=== PATIENT | male | born 1965 | race Caucasian/White ===

== ENCOUNTER → 2020-12-10 | Outpatient (CLI) | payer BC, OTHER ==
[~2020-12-10] MED LIST: PERCOCET 5/325 T1 EA PO
== END ==
LOC: HEART 5 07:48
DX: R07.9 Chest pain, unspecified (principal)
CPT/HCPCS: 78452; 93306; A9502; J2785

== ENCOUNTER 2021-07-23 06:34 | Emergency (ER) | payer BC ==
[2021-07-23 07:13] LABS: HEMOGLOBIN 14.3 gm/dl (14.0-17.5); RED BLOOD COUNT 5.63 M/UL (4.20-5.50); WHITE BLOOD COUNT 12.2 K/UL (4.5-11.0)
[2021-07-23 07:31] LABS: BUN/CREATININE RATIO 21 (0-10)
[2021-07-23] MEDS ORDERED: IBUPROFEN600 MG PO (12:01)
[2021-07-23] MEDS ORDERED: PROVENTIL HFA6.7 GM INH (12:01)
[2021-07-23] MEDS ORDERED: ZOFRAN 4 MG TAB4 MG PO (12:01)
== END 2021-07-23 12:18 | disposition home or self-care (01) ==
LOC: ER1 06:34
PROVIDERS: Physician Assistant Medical
DX: R51.9 Headache, unspecified (principal); R91.1 Solitary pulmonary nodule; Z20.822 Contact with and (suspected) exposure to COVID-19; I10 Essential (primary) hypertension; E10.9 Type 1 diabetes mellitus without complications; Z88.8 Allergy status to other drugs, medicaments and biological substances; Z79.84 Long term (current) use of oral hypoglycemic drugs
CPT/HCPCS: 70450; 71045; 80053; 81001; 82550; 82553; 83605; 84439; 84443; 84484; 85025; 85379; 93005; 96374; 96375; 99285; J1885; J2405; J7030; Q9967; U0002